=== PATIENT | female | born 2000 | race Caucasian/White ===

== ENCOUNTER 2022-03-03 19:22 | Emergency (ER) | payer SELFPAY ==
[2022-03-03 19:46] LABS: #Basophils 0.1 thou/uL (0.0-0.2); #Eosinphils 0.1 thou/uL (0.0-0.7); #Lymphocytes 3.8 thou/uL (1.20-3.40); #Monocytes 0.9 thou/uL (0.11-0.59); #Neutrophils 7.1 thou/uL (1.40-6.50); %Basophils 0.6 % (0.0-1.0); %Eosinophils 1.1 % (0.0-10.0); %Lymphocytes 31.4 % (28.0-48.0); %Monocytes 7.4 % (0.0-4.0); %Neutrophils 59.4 % (31.0-61.0); Hemoglobin 15.3 g/dL (12.0-16.0); Mean Corpuscular HGB CONC 35.4 g/dL (32.0-36.0); Mean Corpuscular Hemoglobin 31.3 pg (25.0-35.0); Mean Corpuscular Volume 88.3 fl (78.0-98.0); Mean Platelet Volume 7.9 fL (7.4-10.4); Platelet Count 328 10x3/uL (130-400); Red Blood Cell (RBC) Count 4.88 mill/uL (4.00-5.20); White Blood Cell (WBC) Count 11.9 10x3/uL (4.8-10.8)
[2022-03-03 19:57] LABS: Bilirubin Negative (Negative); Blood, Urine Negative (Negative); Clarity Clear (Clear); Glucose, Urine (Dipstick) Normal (Negative); Ketone, Urine Negative (Negative); Leukocyte Negative Leu/uL (Negative); Nitrite Negative (Negative); Protein, Urine (Dipstick) Negative (Neg-Trace); Specific Gravity, Urine 1.007 (1.002-1.036); Urobilinogen Normal mg/dL (Less than 2); pH, Urine 6.5 (5.0-9.0)
[2022-03-03 19:58] LABS: Pregnancy Test - Urine (BHCG) Negative (Negative); Pregu Control Background? CLEAR/WHITE (CLR/WHITE); Pregu Control Bar Appear? YES (CONTROL BAR); Specific Gravity 1.007 (1.002-1.036)
[2022-03-03 20:11] LABS: ALT (SGPT) 22 U/L (8-55); AST (SGOT) 18 U/L (5-30); Albumin 4.6 g/dL (3.5-5.0); Alkaline Phosphatase 59 U/L (40-100); Anion Gap 13 mmol/L (10-20); BUN (Urea Nitrogen) 8 mg/dL (8.4-21.0); Bilirubin, Total 0.4 mg/dL (0.2-1.2); Calc. Creatinine Clearance 0 mL/min (70-130); Calcium 9.3 mg/dL (7.8-10.44); Carbon Dioxide 22 mmol/L (22-29); Chloride 108 mmol/L (98-107); Estimated GFR 116; Globulin 2.3 g/dL (2.4-3.5); Glucose 87 mg/dL (70-105); Protein, Total 6.9 g/dL (6.0-8.3); Sodium 139 mmol/L (136-145)
== END 2022-03-04 00:07 | disposition home or self-care (01) ==
LOC: ERS 19:22
DX: N83.201 Unspecified ovarian cyst, right side (principal)
CPT/HCPCS: 36415; 76856; 80053; 81003; 81025; 85025; 93976